=== PATIENT | male | born 1995 | race Caucasian/White ===

== ENCOUNTER 2018-04-30 22:39 | Emergency (ER) | payer BC, SELFPAY ==
--- NOTE | 2018-04-30 23:30 | ER ---
Nurse's Notes [facility] Name: Luis Soto Age: 22 yrs Sex: Male : 1995 Arrival Date: 04/30/2018 Time: 22:43 Bed 10 Private MD: Diagnosis: Acute serous otitis media, right ear;Tympanic membrand perforation Presentation: 04/30 22:59 Presenting complaint: Patient states: that he is having right ear pain that started 5 fc days ago. No noted drainage. Denies sore throat or fever. Transition of care: patient was not received from another setting of care. Onset of symptoms was April 25, 2018. Risk Assessment: Do you want to hurt yourself or someone else? Patient reports no desire to harm self or others. Initial Sepsis Screen: Does the patient meet any 2 criteria? No. Patient's initial sepsis screen is negative. Does the patient have a suspected source of infection? No. Patient's initial sepsis screen is negative. Care prior to arrival: Medication(s) given: Allergy/Decongestant medication last taken at 1500. 22:59 Method Of Arrival: Ambulatory 22:59 Acuity: YARA 4 Triage Assessment: 23:03 General: Appears comfortable, obese, Behavior is calm, cooperative, appropriate for age. Pain: Complains of pain in right ear Pain currently is 9 out of 10 on a pain scale. Quality of pain is described as burning, pressure, tingling, Pain began 5 days ago Is continuous. EENT: Tympanic membrane reddened on right ear Ear canal clear on right ear Reports decreased hearing in right ear pain in right ear. Neuro: Level of Consciousness is awake, alert, obeys commands, Oriented to person, place, time, situation. Cardiovascular: No deficits noted. Respiratory: No deficits noted. GI: No deficits noted. : No deficits noted. Derm: Skin is pink, warm \T\ dry. Musculoskeletal: Circulation, motion, and sensation intact. Capillary refill < 3 seconds, Range of motion: intact in all extremities. Historical: - Allergies: 23: No Known Allergies; fc - Home Meds: 23: None [Active]; fc - PMHx: 23: None; fc - PSHx: 23: None; fc - Immunization history:: Last tetanus immunization: unknown, Flu vaccine is not up to date. - Social history:: Smoking status: Patient/guardian denies using tobacco, Patient uses alcohol, occasionally. Patient/guardian denies using street drugs. - Ebola Screening: : Patient negative for fever greater than or equal to 101.5 degrees Fahrenheit, and additional compatible Ebola Virus Disease symptoms Patient denies exposure to infectious person Patient denies travel to an Ebola-affected area in the 21 days before illness onset. Screenin:04 Abuse screen: Denies threats or abuse. Nutritional screening: No deficits noted. fc Tuberculosis screening: No symptoms or risk factors identified. Fall Risk None identified. Assessment: 23:05 Reassessment: No changes from previously documented assessment. Patient and/or family fc updated on plan of care and expected duration. Pain level reassessed. Patient is alert, oriented x 3, equal unlabored respirations, skin warm/dry/pink. see triage assessment. 23:12 Reassessment: Neo DAVIES in to see pt and examine him. Vital Signs: 23:01 BP 142 / 94; Pulse 84; Resp 18; Temp 98.5(O); Pulse Ox 100% on R/A; Weight 156.49 kg fc (R); Height 5 ft. 11 in. (180.34 cm) (R); Pain 9/10; 23:01 Body Mass Index 48.12 (156.49 kg, 180.34 cm) ED Course: 22:43 Patient arrived in ED. al2 23:00 Triage completed. 23:02 Arm band placed on Patient placed in an exam room, on a stretcher. 23:04 Patient has correct armband on for positive identification. Call light in reach. 23:04 No provider procedures requiring assistance completed. Patient did not have IV access fc during this emergency room visit. 23:11 Neo Albarran PA is PHCP. [facility] 23:11 Garrison Paredes MD is Attending Physician. dominic 23:27 Lora Branch MD is Referral Physician. [facility] Administered Medications: 23:31 Drug: [place] 10 mg-325 mg 1 tabs Route: PO; fc 05/01 00:01 Follow up: Response: No adverse reaction; Pain is decreased 12 23:31 Drug: Augmentin 875 mg Route: PO; fc 05/01 00:01 Follow up: Response: No adverse reaction; No change in condition fc Outcome: 04/30 23:28 Discharge ordered by MD. [place] 05/01 00:02 Discharged to home ambulatory, with significant other. fc Condition: good Discharge instructions given to patient, significant other, Instructed on discharge instructions, follow up and referral plans. no drinking with medication, no driving heavy equipment, medication usage, Demonstrated understanding of instructions, follow-up care, medications, Prescriptions given X 2. 00:04 Patient left the ED. fc Signatures: Neo Albarran PA PA jmm Chretien, Felicia, SHARON RN Nicky Jane
--- NOTE | 2018-04-30 23:30 | EDPHYS ---
Physician Documentation [facility] Name: Luis Soto Age: 22 yrs Sex: Male : 1995 Arrival Date: 04/30/2018 Time: 22:43 Bed 10 Private MD: ED Physician Garrison Paredes HPI: 04/30 23:18 This 22 yrs old Male presents to ER via Ambulatory with complaints of Ear jmm Pain. 23:18 The patient presents with pain, that is acute. The complaints affect the right ear. jmm Onset: The symptoms/episode began/occurred gradually, 5 day(s) ago. Associated signs and symptoms: Pertinent negatives: fever, sore throat. This is a 22 year old male with no chronic medical conditions that presents to the ED with right ear pain. Worsening since this past Wednesday. Patient denies fever. . Historical: - Allergies: 23: No Known Allergies; fc - Home Meds: 23:01 None [Active]; fc - PMHx: 23: None; fc - PSHx: 23:01 None; fc - Immunization history:: Last tetanus immunization: unknown, Flu vaccine is not up to date. - Social history:: Smoking status: Patient/guardian denies using tobacco, Patient uses alcohol, occasionally. Patient/guardian denies using street drugs. - Ebola Screening: : Patient negative for fever greater than or equal to 101.5 degrees Fahrenheit, and additional compatible Ebola Virus Disease symptoms Patient denies exposure to infectious person Patient denies travel to an Ebola-affected area in the 21 days before illness onset. ROS: 23:18 Constitutional: Negative for fever, chills, and weight loss. jmm 23:18 Neck: Negative for injury, pain, and swelling, Cardiovascular: Negative for chest pain, palpitations, and edema, Respiratory: Negative for shortness of breath, cough, wheezing, and pleuritic chest pain, Abdomen/GI: Negative for abdominal pain, nausea, vomiting, diarrhea, and constipation, Back: Negative for injury and pain, Neuro: Negative for headache, weakness, numbness, tingling, and seizure. 23:18 ENT: Positive for ear pain. 23:18 All other systems are negative. Exam: 23:18 Constitutional: This is a well developed, well nourished patient who is awake, alert, jmm and in no acute distress. Head/Face: atraumatic. 23:18 Chest/axilla: Normal chest wall appearance and motion. Cardiovascular: Regular rate and rhythm. No edema appreciated Abdomen/GI: Non distended, soft Back: Normal ROM Skin: General appearance color normal MS/ Extremity: Moves all extremities, no obvious deformities appreciated, no edema noted to the lower extremities Neuro: Awake and alert, normal gait Psych: Behavior is normal, Mood is normal, Patient is cooperative and pleasant 23:18 ENT: TM's: erythema, that is moderate, rupture, on the right. 23:18 Respiratory: the patient does not display signs of respiratory distress, Respirations: normal. Vital Signs: 23:01 BP 142 / 94; Pulse 84; Resp 18; Temp 98.5(O); Pulse Ox 100% on R/A; Weight 156.49 kg fc (R); Height 5 ft. 11 in. (180.34 cm) (R); Pain 9/10; 23:01 Body Mass Index 48.12 (156.49 kg, 180.34 cm) MDM: 23:18 Patient medically screened. [facility] 23:18 Data reviewed: vital signs, nurses notes. Data interpreted: Pulse oximetry: on room air jmm is 100 %. Interpretation: normal. Counseling: I had a detailed discussion with the patient and/or guardian regarding: the historical points, exam findings, and any diagnostic results supporting the discharge/admit diagnosis, the need for outpatient follow up, to return to the emergency department if symptoms worsen or persist or if there are any questions or concerns that arise at home. Administered Medications: 23:31 Drug: [place] 10 mg-325 mg 1 tabs Route: PO; 05/01 00:01 Follow up: Response: No adverse reaction; Pain is decreased 04/30 23:31 Drug: Augmentin 875 mg Route: PO; 05/01 00:01 Follow up: Response: No adverse reaction; No change in condition Disposition: 05:31 Co-signature as Attending Physician, Garrison Paredes MD. rn Disposition: 04/30/18 23:28 Discharged to Home. Impression: Acute serous otitis media, right ear, Tympanic membrand perforation. - Condition is Stable. - Discharge Instructions: Otitis Media, Adult, Eardrum Perforation, Idng-kg-Hpgs. - Prescriptions for Augmentin 875- 125 mg Oral Tablet - take 1 tablet by ORAL route every 12 hours for 10 days; 20 tablet. Ultracet 37.5- 325 mg Oral Tablet - take 1 tablet by ORAL route every 6 hours - for up to 5 days; do not exceed 8 tablets per day.; 12 tablet. - Medication Reconciliation Form, Thank You Letter, Antibiotic Education, Prescription Opioid Use form. - Follow up: Lora Branch MD; When: 2 - 3 days; Reason: Recheck today's complaints, Continuance of care, Re-evaluation by your physician. Signatures: Neo Albarran PA PA jmm Chretien, Felicia RN RN fc Garrison Paredes MD MD financial services intern: (The following items were deleted from the chart) 00:04 12 23:28 04/30/2018 23:28 Discharged to Home. Impression: Acute serous otitis media, fc right ear; Tympanic membrand perforation. Condition is Stable. Forms are Medication Reconciliation Form, Thank You Letter, Antibiotic Education, Prescription Opioid Use. Follow up: Lora Branch; When: 2 - 3 days; Reason: Recheck today's complaints, Continuance of care, Re-evaluation by your physician. man
[2018-04-30] MEDS ORDERED: HYDROCODONE/APAP 10/325 TAB ONE (23:33)
[2018-04-30] MEDS ORDERED: AMOX/K CLAV 875 MG TAB ONE (23:34)
== END 2018-05-01 00:04 | disposition home or self-care (01) ==
LOC: ER 22:39
DX: H65.01 Acute serous otitis media, right ear (principal); H72.91 Unspecified perforation of tympanic membrane, right ear
CPT/HCPCS: 99283